=== PATIENT | male | born 1980 | race Two or more races ===

== ENCOUNTER → 2024-11-08 | Outpatient (CLI) | payer MEDICAID, SELFPAY | END | disposition home or self-care (01) | LOC: SWHD 08:22 | PROVIDERS: PCP Family Medicine; Referring Provider Family Medicine; Visit Provider Student in an Organized Health Care Education/Training Program | DX: I96 Gangrene, not elsewhere classified (principal); E11.621 Type 2 diabetes mellitus with foot ulcer; T81.89XA Other complications of procedures, not elsewhere classified, initial encounter; L97.522 Non-pressure chronic ulcer of other part of left foot with fat layer exposed; E11.52 Type 2 diabetes mellitus with diabetic peripheral angiopathy with gangrene; Z89.412 Acquired absence of left great toe; Z97.4 Presence of external hearing-aid | CPT/HCPCS: 99213; A9270; G0463 ==

== ENCOUNTER → 2024-11-22 | Outpatient (CLI) | payer MEDICAID, SELFPAY | END | disposition home or self-care (01) | LOC: SWHD 08:18 | PROVIDERS: PCP Family Medicine; Referring Provider Family Medicine; Visit Provider Student in an Organized Health Care Education/Training Program | DX: I96 Gangrene, not elsewhere classified (principal); E11.621 Type 2 diabetes mellitus with foot ulcer; T81.89XA Other complications of procedures, not elsewhere classified, initial encounter; L97.522 Non-pressure chronic ulcer of other part of left foot with fat layer exposed; E11.52 Type 2 diabetes mellitus with diabetic peripheral angiopathy with gangrene; Z89.412 Acquired absence of left great toe; Z79.4 Long term (current) use of insulin | CPT/HCPCS: 99212; G0463 ==

== ENCOUNTER → 2024-12-06 | Outpatient (CLI) | payer MEDICAID, SELFPAY | END | disposition home or self-care (01) | LOC: SWHD 08:14 | PROVIDERS: PCP Family Medicine; Referring Provider Family Medicine; Visit Provider Student in an Organized Health Care Education/Training Program | DX: T81.89XA Other complications of procedures, not elsewhere classified, initial encounter (principal); L97.522 Non-pressure chronic ulcer of other part of left foot with fat layer exposed; E11.52 Type 2 diabetes mellitus with diabetic peripheral angiopathy with gangrene; Z89.412 Acquired absence of left great toe; Z79.4 Long term (current) use of insulin | CPT/HCPCS: 99212; G0463 ==